=== PATIENT | female | born 1955 | race Caucasian/White ===

== ENCOUNTER 2017-02-13 17:49 | Emergency (ER) | payer OTHER ==
[~2017-02-13] VITALS: Ht 149.8 cm; Wt 81.2 kg
[~2017-02-13 17:49] MED LIST: ALBUTEROL0.09 MG/A2 IH; AMBIEN5 MG PO; ASPIRIN ADULT L81 M1 PO; B12100 MC1 PO; BACTRIM DS 8001 TA1 PO; CALCIUM + D 6001 TAB PO; CALCIUM500 MG PO; CEFTIN500 M1 PO; CIPRO500 MG PO; CLINDAMYCIN HC300 MG PO; COREG3.125 MG PO; CYMBALTA60 MG PO; DIGOXIN0.25 MG PO; DOXYCYCLINE HY100 M5 PO; DUONEB 3 MG/3 ML3 M1 NEB; ENABLEX15 MG PO; ENABLEX7.5 MG PO; GLIMEPIRIDE1 MG PO; GLIPIZIDE10 MG PO; HYDROCODONE BIT1 T11 PO; INVANZ1 GM/50 ML IV; KLONOPIN0.5 MG PO; KLONOPIN2 M1 PO; LASIX20 MG PO; LASIX40 MG PO; LEVAQUIN750 MG PO; METAMUCIL PACK3.4 GM PO; METFORMIN1000 MG PO; METFORMIN500 MG PO; METOLAZONE2.5 MG PO; NATURE'S BLEND500 M1 PO; NEURONTIN600 MG PO; NEURONTIN800 MG PO; NORCO 325 MG-51 TAB PO; NORCO 5-325 TA1 EACH PO; PEPCID AC20 MG PO; PERCOCET 325 MG1 TA2 PO; POTASSIUM20 MEQ PO; SYNTHROID,LEV112 MCG PO; SYNTHROID,LEVO25 MCG PO; VICODIN 5-3001 EACH PO; VICODIN1 TAB PO; VITAMIN D32000 I1 PO; WOMEN'S ONE DAI1 TAB PO; ZAROXOLYN2.5 MG PO; ZESTRIL2.5 MG PO; ZOCOR10 MG PO; ZOCOR20 MG PO; ZOFRAN 4 MG ED2 TAB PO; ZYVOX600 MG PO; [UNRECOGNIZED DRUG - CODE] T; [UNRECOGNIZED DRUG - OTHER] PO
[2017-02-13 18:34] LABS: BASO % 0.3 % (0.0-1.0); EOS # 0.3 10*3/uL (0.0-0.4); EOS % 2.4 % (1.0-4.0); HEMATOCRIT 32.7 % (37.0-47.0); HEMOGLOBIN 9.8 g/dl (12.0-16.0); LYMPH # 3.2 10*3/uL (1.3-4.4); LYMPH % 26.9 % (27.0-41.0); MEAN CELL VOLUME 77.9 fl (81.0-99.0); MEAN CORPUSCULAR HGB 23.3 pg (27.0-31.0); MEAN PLATELET VOLUME 9.1 fl (9.6-12.3); MONO % 8.7 % (3.0-9.0); NEUT # 7.3 10*3/uL (2.3-7.9); NEUT % 61.4 % (47.0-73.0); PLATELET COUNT AUTOMATED 324 10*3/uL (130-400); WHITE BLOOD COUNT 11.8 10*3/uL (4.8-10.8)
[2017-02-13 18:48] LABS: ALBUMIN 3.4 gm/dl (3.1-4.5); ALKALINE PHOSPHATASE 84 U/L (45-117); BILIRUBIN, TOTAL 0.4 mg/dl (0.2-1.0); BUN 14 mg/dl (7-24); CARBON DIOXIDE 28 mmol/L (21-32); CHLORIDE 107 mmol/L (98-107); EST GLOM FILT AFRICAN AMERICAN > 60 ml/min; GLUCOSE 102 mg/dL (65-99); POTASSIUM 3.7 mmol/L (3.5-5.1); SGOT/AST 26 IU/L (3-35); SGPT/ALT 34 U/L (12-78); SODIUM 146 mmol/L (136-145); TOTAL PROTEIN 7.4 gm/dL (6.4-8.2)
[2017-02-13] MEDS ORDERED: CEPHALEXIN500 M1 PO (19:26)
== END 2017-02-13 19:40 | disposition home or self-care (01) ==
LOC: ED 17:49
PROVIDERS: Nurse Practitioner Family
DX: S61.200A Unspecified open wound of right index finger without damage to nail, initial encounter (principal); I25.10 Atherosclerotic heart disease of native coronary artery without angina pectoris; I10 Essential (primary) hypertension; E11.9 Type 2 diabetes mellitus without complications; I25.2 Old myocardial infarction; E03.9 Hypothyroidism, unspecified; Z95.0 Presence of cardiac pacemaker; Z88.1 Allergy status to other antibiotic agents; Z88.8 Allergy status to other drugs, medicaments and biological substances; Z79.82 Long term (current) use of aspirin; Z79.899 Other long term (current) drug therapy; W26.0XXA Contact with knife, initial encounter; Y93.89 Activity, other specified; Y92.9 Unspecified place or not applicable; Y99.9 Unspecified external cause status

== ENCOUNTER → 2017-02-18 | Outpatient (CLI) | payer OTHER ==
[~2017-02-18] MED LIST changes: +CEPHALEXIN500 M1 PO
== END ==
LOC: WOUNDCARE 03:29
DX: E11.622 Type 2 diabetes mellitus with other skin ulcer (principal); L98.491 Non-pressure chronic ulcer of skin of other sites limited to breakdown of skin; T23.221D Burn of second degree of single right finger (nail) except thumb, subsequent encounter; I25.2 Old myocardial infarction; F41.9 Anxiety disorder, unspecified; I10 Essential (primary) hypertension; E03.9 Hypothyroidism, unspecified; E11.40 Type 2 diabetes mellitus with diabetic neuropathy, unspecified; Z89.021 Acquired absence of right finger(s); Z86.73 Personal history of transient ischemic attack (TIA), and cerebral infarction without residual deficits; X08.8XXD Exposure to other specified smoke, fire and flames, subsequent encounter

== ENCOUNTER → 2017-02-26 | Outpatient (CLI) | payer OTHER | LOC: WOUNDCARE 13:50 | DX: E11.622 Type 2 diabetes mellitus with other skin ulcer (principal); L98.491 Non-pressure chronic ulcer of skin of other sites limited to breakdown of skin; T23.221D Burn of second degree of single right finger (nail) except thumb, subsequent encounter; E11.40 Type 2 diabetes mellitus with diabetic neuropathy, unspecified; X10.2XXD Contact with fats and cooking oils, subsequent encounter ==

== ENCOUNTER → 2017-03-05 | Outpatient (CLI) | payer OTHER | LOC: WOUNDCARE 02:34 | DX: T23.221D Burn of second degree of single right finger (nail) except thumb, subsequent encounter (principal); T23.201D Burn of second degree of right hand, unspecified site, subsequent encounter; T31.0 Burns involving less than 10% of body surface; E11.622 Type 2 diabetes mellitus with other skin ulcer; L98.491 Non-pressure chronic ulcer of skin of other sites limited to breakdown of skin; X08.8XXD Exposure to other specified smoke, fire and flames, subsequent encounter ==

== ENCOUNTER → 2017-03-23 | Outpatient (CLI) | payer OTHER ==
--- NOTE | ~2017-03-23 | PR ---
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 SUBJECTIVE: This is a 61-year-old female with severe neuropathy and recurrent ulcerations of her fingers. 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 She was last seen approximately 2 weeks ago, at that time, she had a blistered area on the lateral side of her hand that was drained, she was noted to have a low-grade temperature that was cultured and grew some MRSA. The patient has been started empirically on doxycycline prior to the results with the antibiotics. The patient is to follow up in the Wound Clinic shortly afterwards for that as well as chronic ulcer of her second digit; however, she went to the [facility] due to cardiac issues and comes in today without any specific complaints. She says she thinks the wound on the tip of her second digit looks healed, it is scabbed over, it is dry, and it is not draining at this time. She did state approximately a week ago, she had noticed that there was some small pustules that actually had opened up and drained on their own after she had been in the wound clinic and since then, the wound has healed quite nicely. The lateral side of the hand wound also healed, but it still does have a small open crack in it and is remaining quite dry, but otherwise is not causing any pain, discomfort, fevers or chills or drainage presently. OBJECTIVE: VITAL SIGNS: Shows temperature of 99.2, pulse 64, respirations 16, blood pressure 100/54. SKIN: The wound on the second digit of the right hand appears healed at 0.1 x 0.1 x 0.1. There is no sign of infection. It is clean, dry and healed. The wound on the lateral side of the hand is still slightly open at 0.2 x 0.6 x 0.1. It is more of a dry ____ type area still open, but has some dry areas around it. There is no sign of infection. She says that she has been using Neosporin on it, but it is quite dry. No debridement is done. ASSESSMENT AND PLAN: Healed wound of the right second digit. We will keep it open and she can use Aquaphor moisturizer for this area and also for her second burn and seemed to be healing quite nicely. At this point, I will just have her use Aquaphor to keep it moisturized and she can keep it covered with a Band-Aid since it still slightly open. Follow up in the Wound Clinic in 1 week. She does have gloves that she wears for protection and I did discuss with her how she should always keep her hands protected when she is cooking. She is aware of it, so she has multiple options that she can use, but does not always use them. She is aware of why she needs protection. Follow up in one week. [place], [place] PROGRESS NOTE NAME: JORDAN GARZA UNIT #: [id number] ROOM: DOCTOR: MAILE VALENTIN M.D. BIRTHDATE: [birth year] MAILE VALENTIN MD CM:MANDIE [id number] MAILE VALENTIN M.D. 03/23/17 1112 interface
== END ==
LOC: WOUNDCARE 02:47
DX: T23.221D Burn of second degree of single right finger (nail) except thumb, subsequent encounter (principal); E11.622 Type 2 diabetes mellitus with other skin ulcer; L98.491 Non-pressure chronic ulcer of skin of other sites limited to breakdown of skin; E11.40 Type 2 diabetes mellitus with diabetic neuropathy, unspecified; B95.62 Methicillin resistant Staphylococcus aureus infection as the cause of diseases classified elsewhere; X08.8XXD Exposure to other specified smoke, fire and flames, subsequent encounter

== ENCOUNTER → 2017-03-31 | Outpatient (CLI) | payer OTHER ==
--- NOTE | ~2017-03-31 | PR ---
[place], [place] PROGRESS NOTE NAME: JORDAN GARZA [facility] #: [id number] UNIT #: [id number] ROOM: DOCTOR: MAILE VALENTIN M.D. BIRTHDATE: [birth year] DOS: 03/31/2017 CHIEF COMPLAINT: Followup of burn to the right hand. HISTORY OF PRESENT ILLNESS: This is a 61-year-old female who has severe neuropathy of her fingers with recurrent injuries and wounds due to neuropathy. In any case, she had a chronic ulcer of the right second finger that did heal, but then had subsequent peñaloza to the right lateral hand that was fairly recent, that area appeared to be healing quite nicely. She did still have a very small open wound present on the lateral side of the hand, which we brought her back today to make sure that this was healing well and she comes in today saying the wound is healed. It is not open, it is not draining. We had recommended for her to keep it open last time and just use Aquaphor to the area. OBJECTIVE: VITALS SIGNS: Stable. Temperature is 99.1, pulse is 60, respirations 16 and blood pressure is 110/62. SKIN: The wound is healed, both on the right second digit as well as the lateral side of the right hand. ASSESSMENT AND PLAN: Healed wounds of the hand. The patient will be discharged and to follow up in the future if need be. MAILE VALENTIN MD CM:PNTRANS [phone] MAILE VALENTIN M.D. 03/31/17 1019 interface
== END | disposition home or self-care (01) ==
LOC: WOUNDCARE 03:17
DX: T23.221D Burn of second degree of single right finger (nail) except thumb, subsequent encounter (principal); E11.622 Type 2 diabetes mellitus with other skin ulcer; L98.491 Non-pressure chronic ulcer of skin of other sites limited to breakdown of skin; E11.40 Type 2 diabetes mellitus with diabetic neuropathy, unspecified; T31.0 Burns involving less than 10% of body surface; X08.8XXD Exposure to other specified smoke, fire and flames, subsequent encounter

== ENCOUNTER 2017-06-25 03:01 | Inpatient (IN) | payer OTHER ==
[2017-06-25] VITALS (11 sets, daily range): BP systolic 88–155; BP diastolic 50–90
[~2017-06-25] VITALS: Ht 149.8 cm; Wt 84.4 kg
--- NOTE | ~2017-06-25 | PR ---
[place], [place] PROGRESS NOTE NAME: JORDAN GARZA UNIT #: [id number] ROOM: [facility] DOCTOR: MELISSA ULLOA,STEVEN BIRTHDATE: [birth year] DOS: SUBJECTIVE: The patient is sitting up in a chair, does not appear in distress. Denies any specific cardiac complaint. No more pleuritic chest pains. OBJECTIVE: VITAL SIGNS: Blood pressure 98/64, heart rate 61, respiratory rate of 14, temperature 98.3. NECK: Good upstroke. No bruit. No evidence of JVD. HEART: S1, S2 with no rub. LUNGS: Clear to auscultation with decreased air movement. ABDOMEN: Obese, soft, nontender, present bowel sounds. LOWER EXTREMITIES: No significant edema. LABORATORY DATA: White count 9.0, hemoglobin 11.6, GFR 58%. ASSESSMENT AND PLAN: History of severe nonischemic cardiomyopathy. The patient usually follows in [facility]. Reported latest ejection fraction around 20%. The patient is status post AICD placement. From the Cardiology point of view, he continues to do very well. Denies any more chest pains. The patient appears to be euvolemic. From the Cardiology point of view, we will continue current medical regimen. The patient can be discharged home from our point of view and followup with either Dr. Diaz in our clinic here at [facility] per their recommendations. STEVEN TORRES MD CM:PNTRANS [id number] STEVEN TORRES MD 06/27/17 1508 interface
[2017-06-25] MEDS ORDERED: KEPPRA500 MG PO (03:06)
[2017-06-25 03:17] LABS: BASO # 0.1 10*3/uL (0.0-0.1); BASO % 0.5 % (0.0-1.0); EOS # 0.3 10*3/uL (0.0-0.4); EOS % 2.3 % (1.0-4.0); HEMATOCRIT 36.4 % (37.0-47.0); HEMOGLOBIN 11.4 g/dl (12.0-16.0); LYMPH # 3.8 10*3/uL (1.3-4.4); LYMPH % 35.6 % (27.0-41.0); MEAN CELL VOLUME 80.2 fl (81.0-99.0); MEAN CORPUSCULAR HGB 25.1 pg (27.0-31.0); MEAN CORPUSCULAR HGB CONC 31.3 g/dl (33.0-37.0); MEAN PLATELET VOLUME 9.8 fl (9.6-12.3); MONO # 1.1 10*3/uL (0.1-1.0); MONO % 10.4 % (3.0-9.0); NEUT # 5.5 10*3/uL (2.3-7.9); NEUT % 51.1 % (47.0-73.0); PLATELET COUNT AUTOMATED 325 10*3/uL (130-400); RED BLOOD COUNT 4.54 10*6/uL (4.10-5.10); RED CELL DISTRI WIDTH 18.3 % (0-14.5); WHITE BLOOD COUNT 10.7 10*3/uL (4.8-10.8)
[2017-06-25 03:27] LABS: ACT PARTIAL THROMBO TIME 25.1 SECONDS (20.8-31.5); INTERNATIONAL NORM RATIO 0.9 (2.0-3.5)
[2017-06-25 03:42] LABS: ALBUMIN 3.6 gm/dl (3.1-4.5); ALKALINE PHOSPHATASE 98 U/L (45-117); BUN 19 mg/dl (7-24); CHLORIDE 102 mmol/L (98-107); CREATININE 0.97 mg/dL (0.55-1.02); POTASSIUM 4.3 mmol/L (3.5-5.1); SGOT/AST 28 IU/L (3-35); SGPT/ALT 24 U/L (12-78); SODIUM 138 mmol/L (136-145); TOTAL PROTEIN 7.8 gm/dL (6.4-8.2)
[2017-06-25 03:44] LABS: TROPONIN I < 0.015 ng/ml (<0.045)
--- NOTE | 2017-06-25 03:48 | NUR ---
PAIN INITALLY 8/10 UPON ARRIVAL NOW 610 AFTER 1 NGT SL, PT SITTING IN HIGH FOWLERS POSITION OF COMFORT, BED IN LOWEST POSITION CALL BLANTON IN REACH DAUGHTER AT BEDSIDE
--- NOTE | 2017-06-25 04:05 | NUR ---
called 5e to give report, nrs was busy will call back
[2017-06-25] MEDS ORDERED: MELATONIN10 M4 PO (05:28)
--- NOTE | 2017-06-25 05:58 | NUR ---
A 61, admitted to , under the services of TERRI Streeter DO with a diagnosis of CHEST PAIN. Chief complaint is CHEST PAIN. Patient arrived via ambulatory from ER. Monitor applied. Initial assessment completed. Vital signs taken and recorded. TERRI STREETER DO notified of admission to the unit. Orders received. See assessment for past medical history, medications and allergies. Patient and/or family oriented to unit. [facility]U visitation policy reviewed. Clothing/patient valuable form completed. SERGEY STEPHENS
[2017-06-25 06:39] LABS: PHOSPHOROUS 3.9 mg/dL (2.5-4.9)
[2017-06-25 06:46] LABS: THYROID STIM HORMONE (HS) 3.85 uIU/ml (0.358-4.75)
[2017-06-25 07:42] LABS: VITAMIN D, 25-HYDROXY 37.1 ng/mL (30-100)
--- NOTE | 2017-06-25 07:50 | NUR ---
IN BED RESTING QUIETLY. AWAKENS TO VOICE. STATES CHEST PAIN IS VERY MINIMAL AT THIS TIME OF 10/03. WILL CONT TO MONITOR. SEE ASSESS. CALL LIGHT IN REACH.
[2017-06-25] MEDS ORDERED: ALDACTONE25 M1 PO (07:53)
[2017-06-25] MEDS ORDERED: HEALTHY HEART1 EACH PO (07:54)
--- NOTE | 2017-06-25 08:12 | NUR ---
Emma at Dr. Diaz's office notified of consult.
--- NOTE | 2017-06-25 08:26 | NUR ---
CONSULT AKNOWLEDGED. LYNNE FROM CARDIOLOGY STATED IT WAS CALLED AND ON THE LIST.
--- NOTE | 2017-06-25 08:59 | NUR ---
PER DR BAUTISTA MAY DRAW ROUTINE LABS ORDERED FOR NOON NOW WITH TROPONIN.
[2017-06-25 09:16] LABS: BASO % 0.5 % (0.0-1.0); EOS # 0.2 10*3/uL (0.0-0.4); EOS % 2.4 % (1.0-4.0); HEMATOCRIT 33.8 % (37.0-47.0); HEMOGLOBIN 10.4 g/dl (12.0-16.0); LYMPH # 2.9 10*3/uL (1.3-4.4); LYMPH % 33.5 % (27.0-41.0); MEAN CELL VOLUME 81.3 fl (81.0-99.0); MEAN CORPUSCULAR HGB CONC 30.8 g/dl (33.0-37.0); MEAN PLATELET VOLUME 9.3 fl (9.6-12.3); MONO # 0.9 10*3/uL (0.1-1.0); NEUT # 4.7 10*3/uL (2.3-7.9); NEUT % 53.4 % (47.0-73.0); PLATELET COUNT AUTOMATED 284 10*3/uL (130-400); RED BLOOD COUNT 4.16 10*6/uL (4.10-5.10); RED CELL DISTRI WIDTH 18.2 % (0-14.5); WHITE BLOOD COUNT 8.7 10*3/uL (4.8-10.8)
[2017-06-25 09:35] LABS: BUN 19 mg/dl (7-24); CHLORIDE 103 mmol/L (98-107); CREATININE 0.94 mg/dL (0.55-1.02); POTASSIUM 3.8 mmol/L (3.5-5.1); SODIUM 141 mmol/L (136-145)
[2017-06-25 09:45] LABS: DIGOXIN 0.56 ng/ml (0.8-2.0)
--- NOTE | 2017-06-25 10:51 | NUR ---
JORDAN GARZA [id number] Please refer to the physician's history and physical for past medical history, comorbid conditions, and allergies. Diagnosis: CHEST PAIN Leonel Score: 18,AT RISK WOUND DESCRIPTIONS: Location of the wound: right 3rd finger Type of wound: burn Thickness: Partial Size: 1.0cm x 1.3cm x 0.1cm Tunneling: none Undermining: none Sinus Tract: none Presence of Exudate: none Amount: None Color: Red Odor: None Periwound Skin Appearance: Normal Wound edges: approximated Pain (associated with wound): none at time of assessment How does patient state this happened? pt stated she burnt her fingers Location of the wound: right forth distal finger Type of wound: burn Thickness: Partial Size: 0.3cm x 0.5cm x 0.1cm Tunneling: none Undermining: none Sinus Tract: none Presence of Exudate: none Amount: None Color: Red Odor: None Periwound Skin Appearance: Normal Wound edges: approximated Pain (associated with wound): none at time of assessment How does patient state this happened? pt stated she burnt her fingers Location of the wound: right forth finger medial Type of wound: burn Thickness: Partial Size: 0.9cm x 0.8cm x 0.1cm Tunneling: none Undermining: none Sinus Tract: none Presence of Exudate: none Amount: None Color: Red Odor: None Periwound Skin Appearance: Normal Wound edges: approximated Pain (associated with wound): none at time of assessment How does patient state this happened? pt stated she burnt her fingers Location of the wound: right forth proximal fingers Type of wound: burn Thickness: Partial Size: 0.1cm x 0.3cm x 0.1cm Tunneling: none Undermining: none Sinus Tract: none Presence of Exudate: none Amount: None Color: Red Odor: None Periwound Skin Appearance: Normal Wound edges: approximated Pain (associated with wound): none at time of assessment How does patient state this happened? pt stated she burnt her fingers Location of the wound: left 1st finger Type of wound: burn Thickness: Partial Size: 0.1cm x 0.4cm x 0.1cm Tunneling: none Undermining: none Sinus Tract: none Presence of Exudate: none Amount: None Color: Red Odor: None Periwound Skin Appearance: Normal Wound edges: approximated Pain (associated with wound): none at time of assessment How does patient state this happened? pt stated she burnt her fingers Patient does have the several partial finger amputations on both hands. Surface the patient is resting on: Isoflex SKIN PREVENTION RECOMMENDATION: 1. Pressure redistribution support surface as appropriate 2. Elevate heels 3. Remove boots/TEDS every shift and reapply 4. Head of bed 30 degrees as tolerated 5. Assess nutrition and hydration 6. Manage moisture 7. Avoid the use of containment devices while in bed 8. Use absorptive products on surfaces limit layers of linens on bed 9. Turn and reposition every 1-2 hours in bed and every 1 hour in chair as tolerated 10. Weight shifts every 15 minutes while up in chair 11. Offloading with pillows or device to keep heels elevated off bed 12. Monitor skin at least every shift 13. Inspect under medical devices twice a day WOUND TREATMENT RECOMMENDATIONS: Cleanse all affect fingers with nss and apply therahoney and cover with dry dressing daily or prn if soiled.
--- NOTE | 2017-06-25 11:00 | NUR ---
MED REC UPDATED BY CALLING [facility]. DR BAUTISTA MADE AWARE.
[2017-06-25] MEDS ORDERED: LISINOPRIL5 MG PO (11:15)
[2017-06-25] MEDS ORDERED: K-TAB20 MEQ PO (11:18)
--- NOTE | 2017-06-25 14:20 | NUR ---
PT CAME BACK FROM [facility]. [facility] AT BEDSIDE INTERROGATING PACER. WENT IN TO GIVE PT HER NEUROTIN AND WAS HARD TO AROUSE, ALL MORNING WHEN I HAD TO AROUSE HER SHE HAD BEEN HARD TO AROUSE BUT ONCE SHE WOKE UP SHE WAS BASELINE, I GAVE HER THE NEUROTIN AND SHE TOOK IT FINE AND I STAYED IN THE ROOM WITH HER SHE SEEMED VERY DROWSY. CHECKED VITALS P 64, R 16, BP 122/72 AND PULSE OX 97% RA. I ASKED HER QUESTIONS SHE KEPT FALLING ASLEEP. I CALLED DR BAUTISTA TO REPORT CHANGE IN MENTAL STATUS AND SHE STATED SHE WOULD COME TO THE FLOOR. DR BAUTISTA CAME TO FLOOR AND WE WENT OVER WHAT MEDS THE PATIENT WAS GIVEN THIS MORNING. KEPPRA WAS ORDERED AND WAS GIVEN BUT WAS NOT ON THE PATIENT HOME MED LIST. DR BAUTISTA STATED THAT SHE NEEDED TO BE TRANSFERRED TO ICU FOR CLOSER OBSERVATION. TRANFERRED TO ICU 5 AND REPORT GIVEN TO PAULINO IRON WORKER FOREMAN.
--- NOTE | 2017-06-25 14:30 | NUR ---
ARRIVED TO ICCU VIA BED. REPORT RECEIVED FROM RN. TEMP 97.6, NSR NOTED ON MONITOR HR 61, BP 111/80, PULSE OX 90% ON ROOM AIR. PLACED ON 2L NASAL CANNULA. LUNGS CLEAR BILATERALLY. GAUZE DRESSING INTACT TO RIGHT HAND. NO EDEMA NOTED. ALERT AND OREINTED TIMES THREE.
[2017-06-25 15:11] LABS: ABG BASE EXCESS 4.8 mmol/L (-2.0-2.0); ABG HCO3 29.6 mmol/l (22-26); ABG O2 SATURATION 98.2 % (95-97); ARTERIAL BLOOD GAS PCO2 45.6 mmHg (35-45); ARTERIAL BLOOD GAS PH 7.426 (7.35-7.45)
--- NOTE | 2017-06-25 16:00 | NUR ---
Attempting to get out of bed. Placed on bedpan and voided 100cc clear yellow urine.
--- NOTE | 2017-06-25 16:00 | NUR ---
[facility] CALL AND MED REC UPDATED PER FAXED LIST PROVIDED.
[2017-06-25] MEDS ORDERED: CYMBALTA30 MG PO (16:15)
[2017-06-25] MEDS ORDERED: POTASSIUM CHLO20 ME3 PO (16:18)
--- NOTE | 2017-06-25 17:35 | NUR ---
Drowsy. Does open eyes when name is called. No complaints of pain at this time. Vitals stable. NSR on heart monitor. HR 61.
[2017-06-25] MEDS ORDERED: ASPIRIN CHEWABL81 MG PO (17:38)
[2017-06-25] MEDS ORDERED: NEURONTIN600 MG PO (18:33)
[2017-06-25] MEDS ORDERED: DOCUSATE SODIU100 M2 PO (18:35)
[2017-06-25] MEDS ORDERED: ZANTAC 150150 MG PO (18:37)
[2017-06-25] MEDS ORDERED: IRON18 MG PO (18:40)
[2017-06-25] MEDS ORDERED: [UNRECOGNIZED DRUG - OTHER] PO (18:42)
[2017-06-25] MEDS ORDERED: TYLOPHEN500 M2 PO (18:44)
--- NOTE | 2017-06-25 18:49 | NUR ---
MEDICATED WITH 2 TYLENOL FOR COMPLAINTS OF A HEADACHE.
--- NOTE | 2017-06-25 20:00 | NUR ---
PATIENT SITTING TO SIDE OF BED EATING DINNER. DAUGHTER AT BEDSIDE. POX 99% 2L NC. PATIENT STATES SHE HAS HEADACHE. O2 OFF TO ASSESS.
--- NOTE | 2017-06-25 20:15 | NUR ---
DAUGHTER WALKED PATIENT TO RESTROOM AND UPON RETURINING TO BED PATIENT IS VERY DROWSY AGAIN, STATES SHE IS OK JUST TIRED. POX WAS 89-91% RA PLACED BACK ON OXYGEN 2L POX 97%. WILL MONITOR.
--- NOTE | 2017-06-25 22:18 | NUR ---
DAUGHTER REQUESTED COPY OF EMAR. CONSENT SIGNED AND COPY GIVEN. BELTING CUTTER AWARE. DAUGHTER ALSO LEFT A LIST OF MEDS SHE WANTS HER MOM TO HAVE TOMORROW , DR. BARAJAS AWARE AND ALSO AWARE PATIENT TAKES ALDACTONE NO POTASSIUM.
[2017-06-26] VITALS: BP 95/58
[2017-06-26 04:00] VITALS: BP 86/45
[2017-06-26 04:16] LABS: BASO % 0.4 % (0.0-1.0); EOS # 0.2 10*3/uL (0.0-0.4); EOS % 2.7 % (1.0-4.0); HEMATOCRIT 36.5 % (37.0-47.0); HEMOGLOBIN 11.3 g/dl (12.0-16.0); LYMPH # 2.7 10*3/uL (1.3-4.4); LYMPH % 34.3 % (27.0-41.0); MEAN CELL VOLUME 80.9 fl (81.0-99.0); MEAN CORPUSCULAR HGB 25.1 pg (27.0-31.0); MEAN PLATELET VOLUME 9.4 fl (9.6-12.3); MONO # 0.9 10*3/uL (0.1-1.0); MONO % 11.3 % (3.0-9.0); PLATELET COUNT AUTOMATED 306 10*3/uL (130-400); RED BLOOD COUNT 4.51 10*6/uL (4.10-5.10); RED CELL DISTRI WIDTH 18.2 % (0-14.5); WHITE BLOOD COUNT 7.8 10*3/uL (4.8-10.8)
[2017-06-26 04:26] LABS: BUN 23 mg/dl (7-24); CHLORIDE 101 mmol/L (98-107); CREATININE 0.87 mg/dL (0.55-1.02); POTASSIUM 3.7 mmol/L (3.5-5.1); SODIUM 139 mmol/L (136-145)
[2017-06-26 04:27] LABS: PHOSPHOROUS 5.2 mg/dL (2.5-4.9)
--- NOTE | 2017-06-26 07:30 | NUR ---
PATIENT DROWSY BUT ORIENTED. ASSISTED UP TO BSC AND THEN UP TO CHAIR. UNSTEADY ON HER FEET. INFORMED PATIENT NOT TO GET UP BY HERSELF. BODY ALARM IN PLACE. WILL CONTINUE TO MONITOR.
[2017-06-26 08:00] VITALS: BP 102/60
--- NOTE | 2017-06-26 08:40 | NUR ---
DGHT CAME OUT TO NURSES STATION AND STATED THAT HER MOM IS HAVING A HARD TIME FINISHING HER SENTENCES. ALSO STATES THAT HER MOM CANNOT GET HER THOUGHTS OUT. REQUESTING TO TALK TO DOCTOR. CALLED AND INFORMED OF THIS AND SHE STATED SHE WILL BE UP TO SEE THE PATIENT.
--- NOTE | 2017-06-26 09:30 | NUR ---
Student Activities Director in to talk to patient. Patient states lives at home with mom. There are few steps in the home. Physician: Pharmacy: [facility] health services: none Patient's level of ADLs: INDEPENDENT Patient has working utilities: all working DME: none Follow-up physician's appointment after d/c: will be made by hospitalist nurse director upon discharge Does patient want to access PORTAL?: no Discharge plan discussed with patient, daughter present, patient was somewhat drowsy this am. daughter stated that patient lives at home with her mom, she is independent in adls and ambulation, no equipement at home, daughter stated that her mom will be going back home and denies any home needs. EMILY BALL
[2017-06-26 12:00] VITALS: BP 98/68
[2017-06-26 16:00] VITALS: BP 94/41
[2017-06-26 20:00] VITALS: BP 89/42
--- NOTE | 2017-06-26 20:00 | NUR ---
PATIENT AO X 3 STATES SHE DOES NOT REMEMBER ALOT FROM YESTERDAY. DENIES CHEST PAIN OR SHORTNESS OF BREATH. HR 83.
--- NOTE | 2017-06-26 22:30 | NUR ---
EDUCATED ON + MRSA OF NARES. PLACED IN ISOLATION PER POLICY.
[2017-06-27] VITALS: BP 98/64
[2017-06-27 04:00] VITALS: BP 90/50
[2017-06-27 04:43] LABS: BASO # 0.1 10*3/uL (0.0-0.1); BASO % 0.6 % (0.0-1.0); EOS # 0.2 10*3/uL (0.0-0.4); EOS % 2.4 % (1.0-4.0); HEMATOCRIT 36.9 % (37.0-47.0); HEMOGLOBIN 11.6 g/dl (12.0-16.0); LYMPH % 33.2 % (27.0-41.0); MEAN CELL VOLUME 81.6 fl (81.0-99.0); MEAN CORPUSCULAR HGB 25.7 pg (27.0-31.0); MEAN CORPUSCULAR HGB CONC 31.4 g/dl (33.0-37.0); MEAN PLATELET VOLUME 9.9 fl (9.6-12.3); MONO % 10.7 % (3.0-9.0); NEUT # 4.8 10*3/uL (2.3-7.9); NEUT % 52.9 % (47.0-73.0); PLATELET COUNT AUTOMATED 321 10*3/uL (130-400); RED BLOOD COUNT 4.52 10*6/uL (4.10-5.10); RED CELL DISTRI WIDTH 17.8 % (0-14.5)
[2017-06-27 04:58] LABS: CHLORIDE 99 mmol/L (98-107); CREATININE 0.98 mg/dL (0.55-1.02); POTASSIUM 3.7 mmol/L (3.5-5.1); SODIUM 138 mmol/L (136-145)
[2017-06-27 04:59] LABS: BUN 35 mg/dl (7-24)
--- NOTE | 2017-06-27 07:23 | NUR ---
Shift chart check completed.24 HR chart check completed. Sleeping at present.
--- NOTE | 2017-06-27 07:56 | NUR ---
ON ASSESSMENT PT SITTING UP IN CHAIR, READING. SHE DENIES CHEST PAIN OR SHORTNESS OF BREATH, WOULD LIKE TO GO HOME TODAY. HEP LOCK INTACT RT ARM. VIPUL HOSE ON. DRESSING INTACT TO RT HAND. SEE ALL APPROPRIATE INTERVENTIONS.
[2017-06-27 08:00] VITALS: BP 98/64
--- NOTE | 2017-06-27 11:15 | NUR ---
DR TORRES HAS VISITED.
[2017-06-27] MEDS ORDERED: THERA TABLET400 MCG PO (11:26)
[2017-06-27 12:00] VITALS: BP 102/64
--- NOTE | 2017-06-27 12:19 | NUR ---
DISCHARGE INSTRUCTIONS REVIEWED WITH PATIENT. MONITOR AND HEP LOCK REMOVED. DISCHARGE PHOTOS OF WOUNDS RE-TAKEN AND HAND RE-DRESSED. LUNCH ORDERED FOR PT.
--- NOTE | 2017-06-27 12:34 | NUR ---
DISCHARGED VIA W/C IN STABLE CONDITION, VIA W/C, WITH HER DAUGHTER AND ALL OF HER BELONGINGS.
== END 2017-06-27 12:34 | disposition home or self-care (01) | DRG 880 ==
LOC: ED 03:01 → EDHOLD 03:52 → ICCU 03:52 → 5E 03:59 → ICCU 14:28
PROVIDERS: Emergency Medicine; Hospitalist; Internal Medicine; ADMIT Internal Medicine
PROC: 4B02XTZ Measurement of Cardiac Defibrillator, External Approach (ICD-10-PCS; principal; 2017-06-26)
DX: F41.9 Anxiety disorder, unspecified (principal); E11.42 Type 2 diabetes mellitus with diabetic polyneuropathy; I42.9 Cardiomyopathy, unspecified; R07.89 Other chest pain; K21.9 Gastro-esophageal reflux disease without esophagitis; I50.9 Heart failure, unspecified; I25.10 Atherosclerotic heart disease of native coronary artery without angina pectoris; R56.9 Unspecified convulsions; D50.9 Iron deficiency anemia, unspecified; G47.00 Insomnia, unspecified; D72.821 Monocytosis (symptomatic); I11.0 Hypertensive heart disease with heart failure; I95.0 Idiopathic hypotension; E03.9 Hypothyroidism, unspecified; Z96.653 Presence of artificial knee joint, bilateral; Z88.1 Allergy status to other antibiotic agents; Z88.8 Allergy status to other drugs, medicaments and biological substances; Z89.022 Acquired absence of left finger(s); Z90.13 Acquired absence of bilateral breasts and nipples; Z82.49 Family history of ischemic heart disease and other diseases of the circulatory system; Z79.82 Long term (current) use of aspirin; Z79.899 Other long term (current) drug therapy; Z91.81 History of falling; I25.2 Old myocardial infarction; Z87.11 Personal history of peptic ulcer disease; Z87.440 Personal history of urinary (tract) infections; Z87.442 Personal history of urinary calculi; Z98.891 History of uterine scar from previous surgery; Z98.84 Bariatric surgery status; Z81.8 Family history of other mental and behavioral disorders; Z82.0 Family history of epilepsy and other diseases of the nervous system; Z79.84 Long term (current) use of oral hypoglycemic drugs; Z95.810 Presence of automatic (implantable) cardiac defibrillator

== ENCOUNTER → 2017-07-29 | Outpatient (CLI) | payer OTHER ==
[~2017-07-29] MED LIST changes: +ALDACTONE25 M1 PO; +ASPIRIN CHEWABL81 MG PO; +CYMBALTA30 MG PO; +DOCUSATE SODIU100 M2 PO; +HEALTHY HEART1 EACH PO; +IRON18 MG PO; +K-TAB20 MEQ PO; +KEPPRA500 MG PO; +LISINOPRIL5 MG PO; +MELATONIN10 M4 PO; +POTASSIUM CHLO20 ME3 PO; +THERA TABLET400 MCG PO; +TYLOPHEN500 M2 PO; +ZANTAC 150150 MG PO; +[UNRECOGNIZED DRUG - OTHER] PO
== END | disposition home or self-care (01) ==
LOC: WOUNDCARE 02:27
DX: E11.621 Type 2 diabetes mellitus with foot ulcer (principal); L97.412 Non-pressure chronic ulcer of right heel and midfoot with fat layer exposed; I25.10 Atherosclerotic heart disease of native coronary artery without angina pectoris; E03.9 Hypothyroidism, unspecified; F41.9 Anxiety disorder, unspecified; I48.91 Unspecified atrial fibrillation; I25.2 Old myocardial infarction; I11.0 Hypertensive heart disease with heart failure; I50.9 Heart failure, unspecified; Z95.0 Presence of cardiac pacemaker; Z89.022 Acquired absence of left finger(s); Z87.891 Personal history of nicotine dependence

== ENCOUNTER → 2017-08-05 | Outpatient (CLI) | payer OTHER | END | disposition home or self-care (01) | LOC: WOUNDCARE 01:52 | DX: E11.621 Type 2 diabetes mellitus with foot ulcer (principal); L97.412 Non-pressure chronic ulcer of right heel and midfoot with fat layer exposed; I25.10 Atherosclerotic heart disease of native coronary artery without angina pectoris; I10 Essential (primary) hypertension; E03.9 Hypothyroidism, unspecified; F41.9 Anxiety disorder, unspecified; I48.91 Unspecified atrial fibrillation; I25.2 Old myocardial infarction; I11.0 Hypertensive heart disease with heart failure; I50.9 Heart failure, unspecified; Z87.891 Personal history of nicotine dependence ==

== ENCOUNTER → 2017-08-12 | Outpatient (CLI) | payer OTHER | END | disposition home or self-care (01) | LOC: WOUNDCARE 01:26 | DX: E11.621 Type 2 diabetes mellitus with foot ulcer (principal); L97.412 Non-pressure chronic ulcer of right heel and midfoot with fat layer exposed; I25.10 Atherosclerotic heart disease of native coronary artery without angina pectoris; E03.9 Hypothyroidism, unspecified; F41.9 Anxiety disorder, unspecified; I48.91 Unspecified atrial fibrillation; I25.2 Old myocardial infarction; I11.0 Hypertensive heart disease with heart failure; I50.9 Heart failure, unspecified; Z89.022 Acquired absence of left finger(s); Z95.0 Presence of cardiac pacemaker; Z87.891 Personal history of nicotine dependence ==

== ENCOUNTER → 2017-08-19 | Outpatient (CLI) | payer OTHER | END | disposition home or self-care (01) | LOC: WOUNDCARE 03:05 | DX: E11.621 Type 2 diabetes mellitus with foot ulcer (principal); L97.412 Non-pressure chronic ulcer of right heel and midfoot with fat layer exposed; I25.10 Atherosclerotic heart disease of native coronary artery without angina pectoris; E11.9 Type 2 diabetes mellitus without complications; E03.9 Hypothyroidism, unspecified; F41.9 Anxiety disorder, unspecified; I48.91 Unspecified atrial fibrillation; I25.2 Old myocardial infarction; I11.0 Hypertensive heart disease with heart failure; I50.9 Heart failure, unspecified; Z95.0 Presence of cardiac pacemaker; Z89.022 Acquired absence of left finger(s) ==

== ENCOUNTER → 2017-08-26 | Outpatient (CLI) | payer OTHER | END | disposition home or self-care (01) | LOC: WOUNDCARE 09:03 | DX: E11.621 Type 2 diabetes mellitus with foot ulcer (principal); L97.412 Non-pressure chronic ulcer of right heel and midfoot with fat layer exposed; I25.10 Atherosclerotic heart disease of native coronary artery without angina pectoris; E03.9 Hypothyroidism, unspecified; F41.9 Anxiety disorder, unspecified; I48.91 Unspecified atrial fibrillation; I25.2 Old myocardial infarction; I11.0 Hypertensive heart disease with heart failure; I50.9 Heart failure, unspecified; Z95.0 Presence of cardiac pacemaker; Z89.022 Acquired absence of left finger(s); Z87.891 Personal history of nicotine dependence ==

== ENCOUNTER → 2017-09-09 | Outpatient (CLI) | payer OTHER | END | disposition home or self-care (01) | LOC: WOUNDCARE 01:49 | DX: E11.621 Type 2 diabetes mellitus with foot ulcer (principal); L97.412 Non-pressure chronic ulcer of right heel and midfoot with fat layer exposed; I25.10 Atherosclerotic heart disease of native coronary artery without angina pectoris; E03.9 Hypothyroidism, unspecified; F41.9 Anxiety disorder, unspecified; I48.91 Unspecified atrial fibrillation; I25.2 Old myocardial infarction; I11.0 Hypertensive heart disease with heart failure; I50.9 Heart failure, unspecified; Z87.891 Personal history of nicotine dependence; Z89.022 Acquired absence of left finger(s) ==

== ENCOUNTER → 2017-09-16 | Outpatient (CLI) | payer OTHER | END | disposition home or self-care (01) | LOC: WOUNDCARE 03:04 | DX: E11.621 Type 2 diabetes mellitus with foot ulcer (principal); L97.412 Non-pressure chronic ulcer of right heel and midfoot with fat layer exposed; I25.10 Atherosclerotic heart disease of native coronary artery without angina pectoris; I11.0 Hypertensive heart disease with heart failure; I50.9 Heart failure, unspecified; I48.91 Unspecified atrial fibrillation; E03.9 Hypothyroidism, unspecified; G47.30 Sleep apnea, unspecified; I25.2 Old myocardial infarction; I42.8 Other cardiomyopathies; F41.9 Anxiety disorder, unspecified; Z95.810 Presence of automatic (implantable) cardiac defibrillator; Z89.022 Acquired absence of left finger(s); Z87.891 Personal history of nicotine dependence ==

== ENCOUNTER → 2018-08-23 | Outpatient (CLI) | payer OTHER ==
[~2018-08-23] MED LIST changes: +CEFADROXIL500 M1 PO; +LINEZOLID600 MG PO; +ZOFRAN4 MG PO
== END | disposition home or self-care (01) ==
LOC: ORTHO 01:31
DX: M86.8X4 Other osteomyelitis, hand (principal)

== ENCOUNTER → 2018-09-03 | Outpatient (CLI) | payer OTHER ==
[2018-09-03 14:45] LABS: BASO % 0.4 % (0.0-1.0); EOS # 0.2 10*3/uL (0.0-0.4); EOS % 2.2 % (1.0-4.0); HEMOGLOBIN 13.5 g/dl (12.0-16.0); LYMPH # 2.5 10*3/uL (1.3-4.4); LYMPH % 22.8 % (27.0-41.0); MEAN CELL VOLUME 92.9 fl (81.0-99.0); MEAN CORPUSCULAR HGB 29.2 pg (27.0-31.0); MEAN CORPUSCULAR HGB CONC 31.4 g/dl (33.0-37.0); MEAN PLATELET VOLUME 9.8 fl (9.6-12.3); MONO # 0.9 10*3/uL (0.1-1.0); MONO % 8.4 % (3.0-9.0); NEUT # 7.2 10*3/uL (2.3-7.9); PLATELET COUNT AUTOMATED 298 10*3/uL (130-400); RED BLOOD COUNT 4.63 10*6/uL (4.10-5.10); RED CELL DISTRI WIDTH 14.6 % (0-14.5); WHITE BLOOD COUNT 10.9 10*3/uL (4.8-10.8)
[2018-09-03 15:21] LABS: BUN 20 mg/dl (7-24); CHLORIDE 102 mmol/L (98-107); POTASSIUM 4.6 mmol/L (3.5-5.1); SODIUM 137 mmol/L (136-145)
[2018-09-03 15:23] LABS: CREATININE 0.89 mg/dL (0.55-1.02)
== END | disposition home or self-care (01) ==
LOC: LAB 04:29 → ORTHO 04:29
PROVIDERS: Orthopaedic Surgery
DX: M19.041 Primary osteoarthritis, right hand (principal); M19.042 Primary osteoarthritis, left hand; G62.9 Polyneuropathy, unspecified; Z89.021 Acquired absence of right finger(s)

== ENCOUNTER → 2018-09-09 | Day surgery (SDC) | payer OTHER ==
[2018-09-08 13:33] LABS: BILIRUBIN NEGATIVE (NEGATIVE); BLOOD TRACE-INTACT (NEGATIVE); CLARITY CLEAR (CLEAR); COLOR YELLOW (YELLOW); GLUCOSE NEGATIVE (NEGATIVE); KETONE NEGATIVE (NEGATIVE); LEUKO ESTERASE NEGATIVE (NEGATIVE); NITRITE NEGATIVE (NEGATIVE); PH 5.5 (5.0-9.0); UROBILINOGEN 0.2 E.U./dl (0.2-1.0)
[2018-09-08 13:41] LABS: WBC 0-2 wbc/hpf (0-5)
[~2018-09-09] VITALS: Ht 149.8 cm; Wt 83.9 kg
--- NOTE | ~2018-09-09 | EKG ---
[place], [place] ELECTROCARDIOGRAM REPORT NAME: JORDAN GARZA UNIT #: [id number] ROOM: DOCTOR: EPIPHCHELSEY DRAFT REPORT BIRTHDATE: [birth year] [facility] Test Date: 2018-09-08 Test Time: 12:57:03 Pat Name: JORDAN GARZA Department: Room: Gender: F [employer]ist [employer]: : 1955 Requested By: ELISA SEE Order Number: [id number] Reading MD: Danny Mercer MD Measurements Intervals [place] Rate: 68 P: 31 NH: 175 QRS: -3 QRSD: 111 T: 117 QT: 384 QTc: 409 Interpretive Statements Sinus rhythm Low voltage, extremity leads Abnormal lateral Q waves T wave changes suggestive of lateral wall ischemia. No previous ECG available for comparison Electronically Signed On 09-08-2018 11:15:35 PST by Danny Mercer MD CM:EKGRPT:ELECTROCARDIOGRAM REPORT [id number] ELISA LILLY DRAFT REPORT ELISA SEE DO
--- NOTE | ~2018-09-09 | O ---
[place], [place] OPERATIVE NOTE NAME: [id number] UNIT #: [id number] ROOM: DOCTOR: ELISA MAE DO BIRTHDATE: [birth year] DOS: 09/09/2018 DATE OF SURGERY: 09/09/2018 PREOPERATIVE DIAGNOSIS: Right middle finger osteomyelitis. POSTOPERATIVE DIAGNOSIS: Right middle finger osteomyelitis. OPERATIVE PROCEDURE: Amputation of the right middle finger middle phalanx due to osteomyelitis. SURGEON: Elisa Mae DO. FARMWORKER ANIMAL: David. ANESTHESIA: General LMA intubation. 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 She has had multiple injuries to the hands due to cooking and burning the digits. She has had multiple amputations of the distal phalanx of the digits. The right middle finger was noted to have slow healing wounds and an x-ray indicated osteomyelitis at the middle phalanx of the right middle finger. The risks and benefits of the procedure were explained to the patient preoperatively. Preoperative labs and x-rays were obtained. The patient and I discussed her decreased ability to heal the wounds as well as her insensate hand. She desires to keep as much of the healthy tissue as possible, because of function being limited. MRI had been recommended to get an accurate level for amputation, but the patient is unable to have an MRI due to pacemaker. We discussed that cultures and a pathology specimens would be obtained during surgery. DESCRIPTION OF PROCEDURE: The right middle finger was marked in the holding room. The patient was brought to the operative suite. A general anesthetic with LMA intubation was performed. The right upper extremity was prepped and draped in the usual orthopedic fashion. A tourniquet was placed at the right forearm. The timeout was performed. No preoperative antibiotic was given as accurate cultures were desired. The hand was blocked with a right middle finger metacarpal block, utilizing Marcaine 0.5% plain. The arm was elevated and the tourniquet was inflated to 250 mmHg. An incision was planned at the middle phalanx of the middle finger. This was marked with a marking pen. The incision was made sharply with a scalpel. Under loupe magnification, subcutaneous tissue was spread down to the level of the flexor tendons. The flexor tendon was incised, but tagged. The rongeur was used to remove the distal one-half of the middle phalanx of the middle finger. The extensor tendon and dorsal skin was excised to create an adequate healthy flap. Cultures were taken directly from the bone and sent to the lab. The excised portion of the middle phalanx was sent to lab for further study. The wound was copiously irrigated with normal saline. The extensor and flexor tendons were repaired to each other at the distal edge of the middle phalanx amputation site. [place], [place] OPERATIVE NOTE NAME: JORADN GARZA UNIT #: [id number] ROOM: DOCTOR: ELISA MAE DO BIRTHDATE: [birth year] The skin was repaired with 4-0 Prolene in a horizontal mattress suture fashion. The tourniquet was released. The wound was dressed with Xeroform, 4 x 4s, and tube gauze. The anesthetic was reversed. The patient was extubated and taken to the recovery room in satisfactory condition. Sponge and needle count correct. ESTIMATED BLOOD LOSS: None. FINDINGS: Osteomyelitis, middle finger middle phalanx, right hand. DRAINS: None. PACKING: None. SPECIMENS: Bone and soft tissue from the right middle finger. COMPLICATIONS: None. ELISA MAE DO CM:OPRECORD:OPERATIVE NOTE [id number] ELISA MAE DO 09/16/18 1022 interface
[2018-09-09 06:45] VITALS: BP 124/59
[2018-09-09 08:22] VITALS: BP 151/62
[2018-09-09 08:38] VITALS: BP 145/60
[2018-09-09 08:50] VITALS: BP 140/63
[2018-09-09 09:05] VITALS: BP 142/70
[2018-09-09 09:20] VITALS: BP 151/73
== END | disposition home or self-care (01) ==
LOC: SDC 09-06 10:15
PROVIDERS: Orthopaedic Surgery
DX: E11.69 Type 2 diabetes mellitus with other specified complication (principal); M86.641 Other chronic osteomyelitis, right hand; E11.40 Type 2 diabetes mellitus with diabetic neuropathy, unspecified; I42.9 Cardiomyopathy, unspecified; E03.9 Hypothyroidism, unspecified; I50.9 Heart failure, unspecified; I11.0 Hypertensive heart disease with heart failure; I25.118 Atherosclerotic heart disease of native coronary artery with other forms of angina pectoris; I25.2 Old myocardial infarction; K21.9 Gastro-esophageal reflux disease without esophagitis; J44.9 Chronic obstructive pulmonary disease, unspecified; G47.30 Sleep apnea, unspecified; E66.9 Obesity, unspecified; F41.9 Anxiety disorder, unspecified; F32.9 Major depressive disorder, single episode, unspecified; Z68.37 Body mass index [BMI] 37.0-37.9, adult; Z88.8 Allergy status to other drugs, medicaments and biological substances; Z88.1 Allergy status to other antibiotic agents; Z85.3 Personal history of malignant neoplasm of breast; Z87.891 Personal history of nicotine dependence; Z87.442 Personal history of urinary calculi; Z95.0 Presence of cardiac pacemaker; Z96.653 Presence of artificial knee joint, bilateral; Z98.84 Bariatric surgery status; Z98.890 Other specified postprocedural states; Z79.899 Other long term (current) drug therapy; Z72.89 Other problems related to lifestyle; Z82.49 Family history of ischemic heart disease and other diseases of the circulatory system

== ENCOUNTER 2018-09-27 18:18 | Emergency (ER) | payer OTHER ==
[~2018-09-27] VITALS: Ht 167.6 cm; Wt 82.6 kg
[~2018-09-27 18:18] MED LIST changes: -CEFADROXIL500 M1 PO
[2018-09-27 19:09] LABS: BASO % 0.3 % (0.0-1.0); EOS # 0.2 10*3/uL (0.0-0.4); EOS % 2.1 % (1.0-4.0); HEMATOCRIT 41.8 % (37.0-47.0); HEMOGLOBIN 13.8 g/dl (12.0-16.0); LYMPH # 3.3 10*3/uL (1.3-4.4); LYMPH % 28.1 % (27.0-41.0); MEAN CELL VOLUME 91.5 fl (81.0-99.0); MEAN CORPUSCULAR HGB 30.2 pg (27.0-31.0); MONO % 8.6 % (3.0-9.0); NEUT % 60.6 % (47.0-73.0); PLATELET COUNT AUTOMATED 307 10*3/uL (130-400); RED BLOOD COUNT 4.57 10*6/uL (4.10-5.10); RED CELL DISTRI WIDTH 14.3 % (0-14.5); WHITE BLOOD COUNT 11.6 10*3/uL (4.8-10.8)
[2018-09-27 19:26] LABS: ALBUMIN 3.6 gm/dl (3.1-4.5); ALKALINE PHOSPHATASE 106 U/L (45-117); BUN 18 mg/dl (7-24); CHLORIDE 104 mmol/L (98-107); CREATININE 0.91 mg/dL (0.55-1.02); POTASSIUM 4.7 mmol/L (3.5-5.1); SGOT/AST 15 IU/L (3-35); SGPT/ALT 18 U/L (12-78); SODIUM 138 mmol/L (136-145); TOTAL PROTEIN 7.7 gm/dL (6.4-8.2)
[2018-09-27] MEDS ORDERED: CEFADROXIL500 M1 PO (20:12)
[2018-09-27] MEDS ORDERED: CLINDAMYCIN HC300 MG PO (20:13)
== END 2018-09-27 20:45 | disposition home or self-care (01) ==
LOC: ED 18:18
PROVIDERS: Physician Assistant
DX: L08.9 Local infection of the skin and subcutaneous tissue, unspecified (principal); M86.8X4 Other osteomyelitis, hand; Z88.1 Allergy status to other antibiotic agents; Z88.8 Allergy status to other drugs, medicaments and biological substances; Z79.899 Other long term (current) drug therapy; Z79.82 Long term (current) use of aspirin; Z98.890 Other specified postprocedural states

== ENCOUNTER 2018-09-30 20:31 | Emergency (ER) | payer OTHER ==
[~2018-09-30] VITALS: Ht 149.8 cm; Wt 82.6 kg
[~2018-09-30 20:31] MED LIST changes: +CEFADROXIL500 M1 PO
[2018-09-30 21:12] LABS: BASO % 0.4 % (0.0-1.0); EOS # 0.2 10*3/uL (0.0-0.4); EOS % 2.3 % (1.0-4.0); HEMOGLOBIN 13.3 g/dl (12.0-16.0); LYMPH # 3.6 10*3/uL (1.3-4.4); LYMPH % 35.5 % (27.0-41.0); MEAN CELL VOLUME 91.1 fl (81.0-99.0); MEAN CORPUSCULAR HGB 30.3 pg (27.0-31.0); MEAN CORPUSCULAR HGB CONC 33.3 g/dl (33.0-37.0); MEAN PLATELET VOLUME 9.9 fl (9.6-12.3); MONO # 0.9 10*3/uL (0.1-1.0); MONO % 8.8 % (3.0-9.0); NEUT # 5.4 10*3/uL (2.3-7.9); NEUT % 52.8 % (47.0-73.0); PLATELET COUNT AUTOMATED 325 10*3/uL (130-400); RED BLOOD COUNT 4.39 10*6/uL (4.10-5.10); RED CELL DISTRI WIDTH 14.1 % (0-14.5); WHITE BLOOD COUNT 10.2 10*3/uL (4.8-10.8)
[2018-09-30 21:22] LABS: ACT PARTIAL THROMBO TIME 25.3 SECONDS (20.8-31.5); INTERNATIONAL NORM RATIO 0.9 (2.0-3.5)
[2018-09-30 21:26] LABS: ALBUMIN 3.5 gm/dl (3.1-4.5); ALKALINE PHOSPHATASE 101 U/L (45-117); BUN 21 mg/dl (7-24); CHLORIDE 102 mmol/L (98-107); CREATININE 0.94 mg/dL (0.55-1.02); POTASSIUM 4.2 mmol/L (3.5-5.1); SGOT/AST 13 IU/L (3-35); SGPT/ALT 14 U/L (12-78); SODIUM 138 mmol/L (136-145); TOTAL PROTEIN 7.9 gm/dL (6.4-8.2)
== END 2018-09-30 22:19 | disposition home or self-care (01) ==
LOC: ED 20:31
PROVIDERS: Nurse Practitioner Family
DX: L08.9 Local infection of the skin and subcutaneous tissue, unspecified (principal); M25.531 Pain in right wrist; M86.9 Osteomyelitis, unspecified; E11.9 Type 2 diabetes mellitus without complications; I25.2 Old myocardial infarction; E03.9 Hypothyroidism, unspecified; I25.10 Atherosclerotic heart disease of native coronary artery without angina pectoris; I11.0 Hypertensive heart disease with heart failure; I50.9 Heart failure, unspecified; E11.40 Type 2 diabetes mellitus with diabetic neuropathy, unspecified; E66.9 Obesity, unspecified; Z88.1 Allergy status to other antibiotic agents; Z68.39 Body mass index [BMI] 39.0-39.9, adult; Z88.8 Allergy status to other drugs, medicaments and biological substances; Z79.899 Other long term (current) drug therapy; Z79.82 Long term (current) use of aspirin; Z95.0 Presence of cardiac pacemaker

== ENCOUNTER → 2018-10-11 | Outpatient (CLI) | payer OTHER | END | disposition home or self-care (01) | LOC: CT 10-08 14:00 | DX: M86.8X4 Other osteomyelitis, hand (principal); M25.441 Effusion, right hand; E11.9 Type 2 diabetes mellitus without complications; I10 Essential (primary) hypertension ==

== ENCOUNTER 2019-05-14 04:02 | Emergency (ER) | payer OTHER ==
[~2019-05-14] VITALS: Ht 162.5 cm; Wt 99.8 kg
--- NOTE | ~2019-05-14 | EKG ---
[place], [place] ELECTROCARDIOGRAM REPORT NAME: JORDAN GARZA UNIT #: [id number] ROOM: DOCTOR: EPIPHANY DRAFT REPORT BIRTHDATE: [birth year] [facility] Test Date: 2019-05-14 Test Time: 04:13:11 Pat Name: JORDAN GARZA Department: Room: Gender: F Veterinary Epidemiologist: : 1955 Requested By: ROBERT WAGNER Order Number: [id number] Reading MD: Danny Mercer MD Measurements Intervals [place] Rate: 82 P: 71 ME: 120 QRS: 240 QRSD: 154 T: 54 QT: 432 QTc: 505 Interpretive Statements Atrial-sensed ventricular-paced complexes No further analysis attempted due to paced rhythm Baseline wander in lead(s) V1,V2,V3,V5 Compared to ECG 09/08/2018 12:57:03 Sinus rhythm no longer present Q waves no longer present T-wave abnormality no longer present Possible ischemia no longer present Electronically Signed On 05-14-2019 13:41:56 PDT by Danny Mercer MD CM:EKGRPT:ELECTROCARDIOGRAM REPORT [id number] ROBERT WAGNER MD EPIPHANY DRAFT REPORT ROBERT WAGNER MD
[2019-05-14 04:53] LABS: BASO # 0.1 10*3/uL (0.0-0.1); BASO % 0.5 % (0.0-1.0); EOS # 0.2 10*3/uL (0.0-0.4); HEMATOCRIT 40.1 % (37.0-47.0); HEMOGLOBIN 13.2 g/dl (12.0-16.0); LYMPH # 3.7 10*3/uL (1.3-4.4); LYMPH % 34.5 % (27.0-41.0); MEAN CELL VOLUME 94.1 fl (81.0-99.0); MEAN CORPUSCULAR HGB CONC 32.9 g/dl (33.0-37.0); MEAN PLATELET VOLUME 9.6 fl (9.6-12.3); MONO % 9.8 % (3.0-9.0); NEUT # 5.6 10*3/uL (2.3-7.9); NEUT % 52.9 % (47.0-73.0); PLATELET COUNT AUTOMATED 277 10*3/uL (130-400); RED BLOOD COUNT 4.26 10*6/uL (4.10-5.10); RED CELL DISTRI WIDTH 13.4 % (0-14.5); WHITE BLOOD COUNT 10.6 10*3/uL (4.8-10.8)
[2019-05-14 05:05] LABS: ACT PARTIAL THROMBO TIME 28.8 SECONDS (20.0-32.1); INTERNATIONAL NORM RATIO 0.9 (2.0-3.5)
[2019-05-14 05:13] LABS: ALBUMIN 3.3 gm/dl (3.1-4.5); ALKALINE PHOSPHATASE 90 U/L (45-117); BUN 22 mg/dl (7-24); CHLORIDE 107 mmol/L (98-107); CREATININE 0.72 mg/dL (0.55-1.02); LIPASE 129 U/L (73-393); POTASSIUM 3.9 mmol/L (3.5-5.1); SGOT/AST 13 IU/L (3-35); SGPT/ALT 19 U/L (12-78); SODIUM 139 mmol/L (136-145); TOTAL PROTEIN 6.9 gm/dL (6.4-8.2)
[2019-05-14 05:15] LABS: TROPONIN I < 0.015 ng/ml (<0.045)
[2019-05-14 07:01] LABS: BILIRUBIN NEGATIVE (NEGATIVE); BLOOD NEGATIVE (NEGATIVE); CLARITY SL CLOUDY (CLEAR); COLOR YELLOW (YELLOW); GLUCOSE NEGATIVE (NEGATIVE); KETONE NEGATIVE (NEGATIVE); LEUKO ESTERASE TRACE (NEGATIVE); NITRITE NEGATIVE (NEGATIVE); PH 5.5 (5.0-9.0); SPECIFIC GRAVITY 1.015 (1.005-1.030)
[2019-05-14 07:14] LABS: BACTERIA 3+
== END 2019-05-14 14:50 | disposition short-term general hospital (02) ==
LOC: ED 04:02
PROVIDERS: Emergency Medicine Emergency Medical Services
DX: R56.9 Unspecified convulsions (principal); R11.0 Nausea; R53.1 Weakness; R25.1 Tremor, unspecified; R51 Headache; R47.81 Slurred speech; R79.1 Abnormal coagulation profile; E11.9 Type 2 diabetes mellitus without complications; I25.2 Old myocardial infarction; E03.9 Hypothyroidism, unspecified; E66.9 Obesity, unspecified; M86.9 Osteomyelitis, unspecified; I25.10 Atherosclerotic heart disease of native coronary artery without angina pectoris; Z68.39 Body mass index [BMI] 39.0-39.9, adult; Z98.84 Bariatric surgery status; Z95.0 Presence of cardiac pacemaker

== ENCOUNTER → 2019-10-04 | Outpatient (CLI) | payer OTHER ==
[~2019-10-04] MED LIST changes: +FLONASE ALLERG9.9 ML NAS; +Motrin,Rufen800 MG PO; +OMNICEF300 MG PO
== END | disposition home or self-care (01) ==
LOC: US 10:19
DX: E11.40 Type 2 diabetes mellitus with diabetic neuropathy, unspecified (principal); L97.512 Non-pressure chronic ulcer of other part of right foot with fat layer exposed

== ENCOUNTER 2019-10-07 22:07 | Emergency (ER) | payer OTHER ==
[~2019-10-07] VITALS: Ht 149.8 cm; Wt 81.6 kg
[~2019-10-07 22:07] MED LIST changes: -FLONASE ALLERG9.9 ML NAS; -Motrin,Rufen800 MG PO; -OMNICEF300 MG PO
[2019-10-07 23:01] LABS: BASO % 0.4 % (0.0-1.0); EOS # 0.2 10*3/uL (0.0-0.4); EOS % 2.6 % (1.0-4.0); HEMATOCRIT 37.2 % (37.0-47.0); HEMOGLOBIN 12.1 g/dl (12.0-16.0); LYMPH # 1.6 10*3/uL (1.3-4.4); LYMPH % 17.3 % (27.0-41.0); MEAN CELL VOLUME 93.9 fl (81.0-99.0); MEAN CORPUSCULAR HGB 30.6 pg (27.0-31.0); MEAN CORPUSCULAR HGB CONC 32.5 g/dl (33.0-37.0); MEAN PLATELET VOLUME 9.4 fl (9.6-12.3); MONO # 1.3 10*3/uL (0.1-1.0); MONO % 14.2 % (3.0-9.0); NEUT # 6.1 10*3/uL (2.3-7.9); NEUT % 65.2 % (47.0-73.0); PLATELET COUNT AUTOMATED 305 10*3/uL (130-400); RED BLOOD COUNT 3.96 10*6/uL (4.10-5.10); RED CELL DISTRI WIDTH 13.5 % (0-14.5); WHITE BLOOD COUNT 9.4 10*3/uL (4.8-10.8)
[2019-10-07 23:17] LABS: ALBUMIN 3.2 gm/dl (3.1-4.5); ALKALINE PHOSPHATASE 98 U/L (45-117); BUN 25 mg/dl (7-24); CHLORIDE 104 mmol/L (98-107); CREATININE 1.06 mg/dL (0.55-1.02); SGOT/AST 18 IU/L (3-35); SGPT/ALT 25 U/L (12-78); SODIUM 137 mmol/L (136-145); TOTAL PROTEIN 7.6 gm/dL (6.4-8.2)
[2019-10-08 01:48] LABS: BILIRUBIN NEGATIVE (NEGATIVE); BLOOD 1+ (NEGATIVE); CLARITY CLEAR (CLEAR); COLOR STRAW (YELLOW); GLUCOSE NEGATIVE (NEGATIVE); KETONE NEGATIVE (NEGATIVE); LEUKO ESTERASE TRACE (NEGATIVE); NITRITE NEGATIVE (NEGATIVE); UROBILINOGEN 0.2 E.U./dl (0.2-1.0)
[2019-10-08 01:50] LABS: BACTERIA 2+; WBC 0-2 wbc/hpf (0-5)
[2019-10-08] MEDS ORDERED: FLONASE ALLERG9.9 ML NAS (02:26)
[2019-10-08] MEDS ORDERED: OMNICEF300 MG PO (02:26)
[2019-10-08] MEDS ORDERED: Motrin,Rufen800 MG PO (02:26)
== END 2019-10-08 03:10 | disposition home or self-care (01) ==
LOC: ED 22:07
PROVIDERS: Physician Assistant
DX: B34.9 Viral infection, unspecified (principal); J32.9 Chronic sinusitis, unspecified; N39.0 Urinary tract infection, site not specified; M43.6 Torticollis; E11.40 Type 2 diabetes mellitus with diabetic neuropathy, unspecified; I25.10 Atherosclerotic heart disease of native coronary artery without angina pectoris; I11.0 Hypertensive heart disease with heart failure; I50.9 Heart failure, unspecified; I25.2 Old myocardial infarction; E03.9 Hypothyroidism, unspecified; E66.9 Obesity, unspecified; Z68.30 Body mass index [BMI] 30.0-30.9, adult; Z88.8 Allergy status to other drugs, medicaments and biological substances; Z88.1 Allergy status to other antibiotic agents; Z79.899 Other long term (current) drug therapy; Z79.2 Long term (current) use of antibiotics; Z79.82 Long term (current) use of aspirin

== ENCOUNTER 2020-08-13 19:44 | Emergency (ER) | payer OTHER ==
[~2020-08-13] VITALS: Wt 82.2 kg
[~2020-08-13 19:44] MED LIST changes: +FLONASE ALLERG9.9 ML NAS; +Motrin,Rufen800 MG PO; +OMNICEF300 MG PO
[2020-08-13 20:22] LABS: BASO % 0.2 % (0.0-1.0); EOS % 0.1 % (1.0-4.0); HEMATOCRIT 42.9 % (37.0-47.0); LYMPH # 0.6 10*3/uL (1.3-4.4); LYMPH % 6.1 % (27.0-41.0); MEAN CELL VOLUME 77.9 fl (81.0-99.0); MEAN CORPUSCULAR HGB 23.2 pg (27.0-31.0); MEAN CORPUSCULAR HGB CONC 29.8 g/dl (33.0-37.0); MEAN PLATELET VOLUME 9.8 fl (9.6-12.3); MONO # 0.7 10*3/uL (0.1-1.0); MONO % 6.9 % (3.0-9.0); NEUT # 8.9 10*3/uL (2.3-7.9); NEUT % 86.4 % (47.0-73.0); NUCLEATED RED BLOOD CELL 0.3 % (0.0-0.0); PLATELET COUNT AUTOMATED 454 10*3/uL (130-400); RED BLOOD COUNT 5.51 10*6/uL (4.10-5.10); RED CELL DISTRI WIDTH 17.8 % (0-14.5); WHITE BLOOD COUNT 10.3 10*3/uL (4.8-10.8)
[2020-08-13 20:46] LABS: ALBUMIN 2.9 gm/dl (3.1-4.5); CREATININE 1.15 mg/dL (0.55-1.02); POTASSIUM 3.6 mmol/L (3.5-5.1); TOTAL PROTEIN 6.4 gm/dL (6.4-8.2)
[2020-08-13 21:42] LABS: BILIRUBIN Negative (Negative); BLOOD 1+ (Negative); CLARITY Clear (Clear); COLOR Yellow (Yellow); GLUCOSE Negative (Negative); KETONE Negative (Negative); LEUKO ESTERASE Negative (Negative); NITRITE Negative (Negative)
[2020-08-13 21:58] LABS: WBC 0-2 wbc/hpf (0-5)
[2020-08-13 21:59] LABS: BACTERIA 3+; EPITHELIAL CELLS 0-2
[2020-08-14] MEDS ORDERED: ZOFRAN4 MG PO (01:13)
== END 2020-08-14 01:45 | disposition home or self-care (01) ==
LOC: ED 19:44
PROVIDERS: Internal Medicine
DX: K80.20 Calculus of gallbladder without cholecystitis without obstruction (principal); Z20.828 Contact with and (suspected) exposure to other viral communicable diseases; N18.30 Chronic kidney disease, stage 3 unspecified; B34.9 Viral infection, unspecified; R94.5 Abnormal results of liver function studies; Z88.8 Allergy status to other drugs, medicaments and biological substances; Z88.1 Allergy status to other antibiotic agents; Z79.899 Other long term (current) drug therapy